=== PATIENT | male | born 1960 | race African-American/Black ===

== ENCOUNTER 2018-02-26 09:08 | Emergency (ER) | payer OTHER ==
[~2018-02-26] VITALS: Ht 177.8 cm; Wt 95.3 kg
[2018-02-26] MEDS ORDERED: LISI40TA4 PO (09:13)
[2018-02-26] MEDS ORDERED: LATA2.5D7 EACHEYE (09:14)
[2018-02-26] MEDS ORDERED: KETOROLAC TROMETHAMINE 30 MG INJ ONE (09:30)
[2018-02-26] MEDS ORDERED: KETOROLAC TROMETHAMINE 30 MG INJ IM ONE (09:30)
[2018-02-26] MEDS ORDERED: HYDROMORPHONE 1 MG/1 ML DISP.SYRIN ONE (10:29)
[2018-02-26] MEDS ORDERED: ONDANSETRON ODT 4 MG TAB.RAPDIS ONE (10:29)
[2018-02-26] MEDS ORDERED: ONDANSETRON ODT 4 MG TAB.RAPDIS SL ONE (10:30)
[2018-02-26] MEDS ORDERED: HYDROMORPHONE 1 MG/1 ML DISP.SYRIN IM ONE (10:30)
--- NOTE | 2018-02-26 10:37 | NUR ---
pt brother her to cone picker the pt. pt ready to go home. Patient discharged to home in stable conditon. Written and verbal after care instructions given. Patient verbalizes understanding of instructions.
[2018-02-26 10:38] VITALS: BP 141/94
== END 2018-02-26 10:40 | disposition home or self-care (01) ==
LOC: ER 09:08
DX: M54.5 Low back pain (principal); I10 Essential (primary) hypertension; Z88.0 Allergy status to penicillin
CPT/HCPCS: A4663; J1170; J1885; Q0162